=== PATIENT | male | born 2000 | race Caucasian/White ===

== ENCOUNTER 2022-01-25 23:17 | Emergency (ER) | payer BC, SELFPAY ==
[2022-01-26] MEDS ORDERED: Boostrix 0.5 ML (Tdap) VIAL (>/=7 yrs of age) ONE (00:58)
== END 2022-01-26 04:51 | disposition home or self-care (01) ==
LOC: ERS 23:17
DX: S01.01XA Laceration without foreign body of scalp, initial encounter (principal); F10.129 Alcohol abuse with intoxication, unspecified; W19.XXXA Unspecified fall, initial encounter
CPT/HCPCS: 12002; 70450; 72125; 90471; 90715